=== PATIENT | male | born 1980 | race Two or more races ===

== ENCOUNTER 2024-09-11 16:11 | Outpatient (OUT) | payer OTHER, SELFPAY ==
--- NOTE | 2024-09-11 16:45 | XR_ITS ---
The [address] [address] Patient Name: CAPRICE GAN MRN: [id number] date: 1980 Sex: M Assigned Patient Location: [facility] Current Patient Location: Accession/Order Number: [id number] Exam Date: 09/12/2024 07:58 Report Date: 09/12/2024 08:02 At the request of: MIKY MARIE Procedure: XR ankle RT min 3V CLINICAL DATA: Patient fell 3 weeks ago and has pain at the fourth metatarsal and anterior ankle with radiation up the leg. RIGHT FOOT - 3 views COMPARISON: None AP, lateral and oblique views were obtained. There is no evidence of fracture or dislocation. Small posterior and plantar calcaneal spurs are seen. There are no significant soft tissue abnormalities. XR/XR ankle RT min 3V IMPRESSION: NO ACUTE BONY INJURY. RIGHT ANKLE - 3 views COMPARISON: None AP, lateral and oblique views were obtained. There is no evidence of fracture or dislocation. The talar dome is intact. There are no significant soft tissue abnormalities. IMPRESSION: NO ACUTE BONY INJURY. Impression dictated by: Zelda Cervantes M.D. 09/12/2024 8:02 AM Dictation Location: [place] [address] Electronically authenticated by: [id number] Y Date: 09/12/2024 08:02
--- NOTE | 2024-09-11 16:45 | XR_ITS ---
The [address] [address] Patient Name: CAPRICE GAN MRN: [id number] date: 1980 Sex: M Assigned Patient Location: [facility] Current Patient Location: Accession/Order Number: [id number] Exam Date: 09/12/2024 07:58 Report Date: 09/12/2024 08:02 At the request of: MIKY MARIE Procedure: XR ankle RT min 3V CLINICAL DATA: Patient fell 3 weeks ago and has pain at the fourth metatarsal and anterior ankle with radiation up the leg. RIGHT FOOT - 3 views COMPARISON: None AP, lateral and oblique views were obtained. There is no evidence of fracture or dislocation. Small posterior and plantar calcaneal spurs are seen. There are no significant soft tissue abnormalities. XR/XR foot RT min 3V IMPRESSION: NO ACUTE BONY INJURY. RIGHT ANKLE - 3 views COMPARISON: None AP, lateral and oblique views were obtained. There is no evidence of fracture or dislocation. The talar dome is intact. There are no significant soft tissue abnormalities. IMPRESSION: NO ACUTE BONY INJURY. Impression dictated by: Zelda Cervantes M.D. 09/12/2024 8:02 AM Dictation Location: [place] [address] Electronically authenticated by: [id number] Y Date: 09/12/2024 08:02
== END 2024-09-11 16:12 | disposition home or self-care (01) ==
LOC: RAD 16:17
PROVIDERS: PCP Nurse Practitioner Family; Visit Provider Nurse Practitioner Family
DX: M79.671 Pain in right foot (principal)
CPT/HCPCS: 73610; 73630

== ENCOUNTER 2025-02-19 08:09 | Outpatient (OUT) | payer OTHER, SELFPAY ==
--- NOTE | 2025-02-19 | XR_ITS ---
The [place] [id number] Patient Name: CAPRICE GAN MRN: [id number] date: 1980 Sex: M Assigned Patient Location: [facility] Current Patient Location: [facility] Accession/Order Number: [id number] Exam Date: 02/19/2025 09:15 Report Date: 02/19/2025 10:27 At the request of: ANETTE SHAFFER DO Procedure: XR elbow LT 2V LEFT ELBOW - 2 VIEWS CLINICAL HISTORY: Pain In Left Elbow for approximately 8 months. No reported injury. M25.522 COMPARISON: None AP and lateral views were obtained. There is no evidence of fracture or dislocation. There are no significant soft tissue abnormalities. There is no elbow effusion. XR/XR elbow LT 2V IMPRESSION: NO ACUTE BONY FINDINGS. Impression dictated by: Zelda Cervantes M.D. 02/19/2025 10:27 AM Dictation Location: [place] [address] Electronically authenticated by: [id number] Y Date: 02/19/2025 10:27
--- OUTSIDE RECORDS SUMMARY | 2025-02-19 08:11 | XMS_ITS | Clinical Summary ---
Author Organization [facility] Address [address] [place] [address] Care Team Providers Care Feltmaker Name Role Phone Unavailable Primary Care Provider Unavailabl e Allergies No known active allergies Medications MedicationSigDispense QuantityRefillsLast FilledStart DateEnd DateStatus diclofenac (Voltaren) 75 MG EC tablet Take 75 mg by mouth 2 (two) times a day as [id number] methylPREDNISolone (Medrol Dospak) 4 MG tablets Indications:Sprain of anterior talofibular ligament of right ankle, initial encounterTake as directed on package. 21 tablet 5Active Additional Information Patient not taking.Reported on 11/13/2024 Active Problems Patient Care Coordination No te Formatting of this note migh t be different from the original. [facility] in [place], [place] No known active problems Immunizations ImmunizationAdministration DatesNext CbeADdE87/15/1996DTaP / IPV06/19/1992, 10/27/1989Hep B, Adolescent or Jacvoqnpb05/07/2015,09/21/2013,08/03/2013IPV 04/22/1999MMR06/19/1992,10/07/1991 Family History Medical HistoryRelationNameCommentsDiabetesMotherRelationNameStatusComments MotherAlive Social History Tobacco UseTypesPacks/DayYears UsedDateSmoking Tobacco: NeverSmokeless Tobacco: Never Tobacco Cessation:Counseling Given: Not Answered Alcohol UseStandard Drinks/WeekCommentsYes2 (1 standard drink = 0.6 oz pure alcohol)Sex and Gender InformationValueDate RecordedSex Assigned at BirthNot on fileLegal KtzHbzo4505/13/2022 6:59 PM EDTGender IdentityNot on fileSexual OrientationNot on file Last Filed Vital Signs Vital SignReadingTime TakenCommentsBlood Pressure--Pulse--Temperature-- Respiratory Rate--Oxygen Saturation--Inhaled Oxygen Concentration--Yyxwhq624 kg (235 lb)11/13/2024 3:10 PM TFRJggwex766.3 cm (5' 11 )11/13/2024 3:10 PM EDTBody Mass Index32.78011/13/2024 3:10 PM EDT Plan of Treatment Not on file Insurance
--- OUTSIDE RECORDS SUMMARY | 2025-02-19 08:11 | XMS_ITS | Clinical Summary ---
Author Organization [facility] Address [address], [address] [place] [address] Care Team Providers Care Lens Fabricating Machine Tender Name Role Phone Bruce Blue Primary Care Provider [phone] Allergies No known active allergies Medications MedicationSigDispense QuantityRefillsLast FilledStart DateEnd DateStatus ibuprofen (ADVIL;MOTRIN) 800 MG tablet Take 800 mg by mouth every 6 hours as needed for PainActive Social History Tobacco UseTypesPacks/DayYears UsedDateSmoking Tobacco: NeverSmokeless Tobacco: NeverAlcohol UseStandard Drinks/WeekCommentsNo0 (1 standard drink = 0.6 oz pure alcohol)Sex and Gender InformationValueDate RecordedSex Assigned at BirthNot on fileLegal XsrUjdj1307/26/2017 3:48 PM EDTGender IdentityNot on fileSexual OrientationNot on file Last Filed Vital Signs Vital SignReadingTime TakenCommentsBlood Mdutdhpz811/9605 3:49 PM EDT Hipcj743707/26/2017 3:49 PM SFFEvcyjvkbeuk42.8 ??C (98.3 ??F)07/26/2017 3:49 PM EDTRespiratory Qvlv048407/26/2017 3:49 PM EDTOxygen Byqonakmjv29%07/26/2017 3:49 PM EDTInhaled Oxygen Concentration--Uvdban244.1 kg (245 lb)07/26/2017 3:49 PM TKWCnxvci436.3 cm (5' 11 )07/26/2017 3:49 PM EDTBody Mass Index34.17007/26/2017 3:49 PM EDT Plan of Treatment Not on file Insurance Care Teams Team MemberRelationshipSpecialtyStart DateEnd Date Bruce Blue DO PCP - GeneralInternal Medicine07/26/17
--- OUTSIDE RECORDS SUMMARY | 2025-02-19 08:12 | XMS_ITS | Patient Health Record ---
Author Organization The [facility] in [place] Address [address] [place] [address] Care Team Providers Care Tapper Bit Name Role Phone Alpa Marques Primary Care Provider Allergies No Known Allergies Results Component Value Reference Range Notes XR foot RT min 3V Reviewed date:09/12/2024 09:19:36 AM Interpretation: Performing Lab: Notes/Report: Source Facility: [place] [address] XRay Report Signed Patient: CAPRICE GAN MR#: [id number] : 1980 Acct:[id number] Age/Sex: 44 / M ADM Date: 09/11/24 Loc: [facility] Attending Dr: ALPA MARQUES Ordering Physician: ALPA MARQUES Date of Service: 09/11/24 Procedure(s): XR foot RT min 3V Accession Number(s): [id number] cc: ALPA MARQUES [place] [address] Patient Name: CAPRICE GAN MRN: [id number] date: 1980 Sex: M Assigned Patient Location: [facility] Current Patient Location: Accession/Order Number: [id number] Exam Date: 09/12/2024 07:58 Report Date: 09/12/2024 08:02 At the request of: ALPA MARQUES Procedure: XR ankle RT min 3V CLINICAL DATA: Patient fell 3 weeks ago and has pain at the fourth metatarsal and anterior ankle with radiation up the leg. RIGHT FOOT - 3 views COMPARISON: None AP, lateral and oblique views were obtained. There is no evidence of fracture or dislocation. Small posterior and plantar calcaneal spurs are seen. There are no significant soft tissue abnormalities. XR/XR foot RT min 3V IMPRESSION: NO ACUTE BONY INJURY. RIGHT ANKLE - 3 views COMPARISON: None AP, lateral and oblique views were obtained. There is no evidence of fracture or dislocation. The talar dome is intact. There are no significant soft tissue abnormalities. IMPRESSION: NO ACUTE BONY INJURY. Impression dictated by: Zelda Cervantes M.D. 09/12/2024 8:02 AM Dictation Location: [place] [address] Electronically authenticated by: [id number] Y Date: 09/12/2024 08:02 Dictated By: Zelda Cervantes M.D. Signed By: 09/12/2404 DD/ 1 TD/TT: Landfill Attendant: XR ankle RT min 3V Reviewed date:09/12/2024 09:19:49 AM Interpretation: Performing Lab: Notes/Report: Source Facility: [place] [address] XRay Report Signed Patient: CAPRICE GAN MR#: [id number] : 1980 Acct:[id number] Age/Sex: 44 / M ADM Date: 09/11/24 Loc: RAD Attending Dr: ALPA MARQUES Ordering Physician: ALPA MARQUES Date of Service: 09/11/24 Procedure(s): XR ankle RT min 3V Accession Number(s): [id number] cc: ALPA MARQUES [place] [address] Patient Name: CAPRICE GAN MRN: [id number] date: 1980 Sex: M Assigned Patient Location: [facility] Current Patient Location: Accession/Order Number: [id number] Exam Date: 09/12/2024 07:58 Report Date: 09/12/2024 08:02 At the request of: ALPA MARQUES Procedure: XR ankle RT min 3V CLINICAL DATA: Patient fell 3 weeks ago and has pain at the fourth metatarsal and anterior ankle with radiation up the leg. RIGHT FOOT - 3 views COMPARISON: None AP, lateral and oblique views were obtained. There is no evidence of fracture or dislocation. Small posterior and plantar calcaneal spurs are seen. There are no significant soft tissue abnormalities. XR/XR ankle RT min 3V IMPRESSION: NO ACUTE BONY INJURY. RIGHT ANKLE - 3 views COMPARISON: None AP, lateral and oblique views were obtained. There is no evidence of fracture or dislocation. The talar dome is intact. There are no significant soft tissue abnormalities. IMPRESSION: NO ACUTE BONY INJURY. Impression dictated by: Zelda Cervantes M.D. 09/12/2024 8:02 AM Dictation Location: [place] [address] Electronically authenticated by: [id number] Y Date: 09/12/2024 08:02 Dictated By: Zelda Cervantes M.D. Signed By: 09/12/24 0804 DD/ 0802 TD/TT: Landfill Attendant: Reason For Referral Reason left elbow pain not improving Diagnosis 1 Tendinopathy of elbo w, left (M67.922) Referral Organization [facility] Referring Provider First Name Alpa Referring Provider Last Name Shelli Referring Provider Speciality Family [facility] icitay Referred Provider Toney Francisco Referred Provider Specialty Orthopedic S urgery Referral Priority Routine Medications Medication SIG (Take, Route, Frequency, Duration) Notes Start Date End Date Status Meloxicam 7.5 MG 1 tablet Orally Once a day; Dur ation: 30 days 5Active Social History Tobacco Use: Social History Observation Description Date Details (start date - stop date) Never Smoker NA - NA Tobacco Use/Smoking Question Answer Notes Patient is a nonsmoker Alcohol Screen (Audit-C) Question Answer Notes Did you have a drink containing alcohol in the p ast year? Yes How many drinks did you have on a typical day when you were drinking in the past year?3 or 4 drinks (1 point)How often did you have a drink containing alcohol in the past year?Weekly (3 points)Jgscqd1XpbhbyoobjyiouBczlhvosCCMIT-V (Standard) Question Answer Notes Did you have a drink containing alcohol in the p ast year? No Lqokxb1WruczbsaejlysbHzwbptrg Problems Problem Type SNOMED Code ICD Code Onset Dates Problem Status W/U Status Risk Notes Problem Heat stroke (05757092) Heat stroke (992.0 ) Activeconfirmed Vital Signs Blood pressure diastolic 84 mm Hg 01/22/2025 Bgcdgm73 in01/22/2025lood pressure mm Hg01/22/20252465Ovlsrv735 lbs 01/22/2025BMI32.63 kg/m201/22/2025 Encounters Encounter Location Date Provider Diagnosis [facility] [address] [place] [address] 09/12/2024 Alpa Marques [facility] [place] [address] 11/15/2024[facility] [place] [address]/[facility] [address] [place] [address]/Pamela CramerRight foot pain M79.671[facility] [place] [address]/Pamela CramerTennis elbow, left M77.12[place] [address] [place] [address]/Pamela Shelli Tendinopathy of elbow, left M67.922 Assessments Encounter Date Diagnosis (ICD Code) Assessment Notes Treatment Notes Treatment Clinical Notes Section Notes 09/11/2024 Right foot pain (ICD-10 - M79.67 1) RICE walking boot? 11/15/2024Tennis elbow, left (ICD-10 - M77.12) rest ice bracing discussed PT, ortho referral if not improving 01/22/2025Tendinopathy of elbow, left (ICD-10 - M67.922) referral to [place] [facility] meloxicam helps some, without it pain really bad affecting work, etc Plan Of Treatment Pending Test Test Name Order Date XR ANKLE RT MIN 3 VIEWS 09/11/2024 XR FOOT RT MIN 3 VIEWS 09/11/2024 Insurance Providers Payer Name Payer Address Payer Phone Subscriber Number Group Number Insured Name Patient Relationship to Insured Coverage Start Date Coverage End Date MMO [employer] PPO [address] [address] [place] [address] [id number] Cinthya Ganelf - patient is the insured Medical (General) History Medical History History ICD Code Kidney stones N20.0 COVID-19 U07.1 Arthritis M19.90 Surgical History Surgery Date(Month/Year) Kidney Stone- Lithotripsy APPENDECTOMY
== END 2025-02-19 08:10 | disposition home or self-care (01) ==
LOC: RAD 08:09
PROVIDERS: PCP Nurse Practitioner Family; Visit Provider Orthopaedic Surgery Orthopaedic Trauma
DX: M25.552 Pain in left hip (principal)
CPT/HCPCS: 73070